=== PATIENT | female | born 1955 | race Caucasian/White ===

== ENCOUNTER 2019-06-06 19:36 | Inpatient (IN) | payer BC ==
[~2019-06-06] VITALS: Ht 170.2 cm; Wt 50.2 kg
[2019-06-06] VITALS (9 sets, daily range): BP systolic 93–121; BP diastolic 64–91; PULSE 66–154; RESP 21–30; Ht 170.2 cm; Wt 50.2 kg
[~2019-06-06 19:36] MED LIST: ETOMIDATE 20 MG INJ ONE
[2019-06-06] MEDS ORDERED: LEVALBUTEROL (NEB) 1.25 MG/0.5 ML AMP HHN SCH ×2 (20:30)
[2019-06-06] MEDS ORDERED: ACETAMINOPHEN 650MG/20.3ML CUP PO PRN (20:30)
[2019-06-06] MEDS ORDERED: DOCUSATE SODIUM 100 MG CAP PO PRN (20:30)
[2019-06-06] MEDS ORDERED: BISACODYL (EC) 5 MG TAB PO PRN (20:30)
[2019-06-06] MEDS ORDERED: IPRATROPIUM (NEB) 0.5 MG/2.5 ML AMP HHN SCH (20:30)
[2019-06-06] MEDS ORDERED: ONDANSETRON 4 MG INJ IV PRN (20:30)
[2019-06-06] MEDS ORDERED: PANTOPRAZOLE 40 MG INJ IV ONE (20:30)
[2019-06-06] MEDS ORDERED: LORAZEPAM 2 MG INJ IV PRN (20:30)
[2019-06-06] MEDS ORDERED: ENOXAPARIN 40 MG/0.4 ML SYG SC SCH (20:30)
[2019-06-06] MEDS ORDERED: METHYLPREDNISOLONE 125 MG INJ IV ONE (20:30)
[2019-06-06] MEDS ORDERED: MAGNESIUM SULFATE 2 GM/50 ML 50 ML IVPB ONE (20:30)
[2019-06-06] MEDS ORDERED: IPRATROPIUM (NEB) 0.5 MG/2.5 ML AMP NEB SCH (21:00)
[2019-06-06] MEDS ORDERED: VANCOMYCIN IV PER PHARMACY XX SCH (21:00)
[2019-06-06] MEDS ORDERED: LEVALBUTEROL (NEB) 1.25 MG/0.5 ML AMP HHN PRN (22:30)
[2019-06-06] MEDS ORDERED: LORAZEPAM 2 MG INJ IV ONE (23:30)
[2019-06-06] MEDS ORDERED: VANCOMYCIN 1 GM 250 ML IVPB ONE (23:30)
[2019-06-06] MEDS: SOD CHLORIDE 0.9% 1,000 ML IV SCH (23:33)
[2019-06-07] VITALS (92 sets, daily range): BP systolic 34–150; BP diastolic 10–127; PULSE 0–166; RESP 0–32
[2019-06-07] MEDS: MEROPENEM 1 GM/50ML(PMX) 50 ML IVPB SCH ×3 (00:16→14:44)
[2019-06-07] MEDS: AZTREONAM 2 GM in SOD CHLORIDE 0.9% 100 ML IVPB SCH ×2 (00:16→08:58)
[2019-06-07] MEDS ORDERED: MIDAZOLAM (DRIP) 50 mg/50 mL 50 ML IV SCH (00:30)
[2019-06-07] MEDS ORDERED: LEVALBUTEROL (NEB) 1.25 MG/0.5 ML AMP HHN SCH (01:00)
[2019-06-07] MEDS ORDERED: METHYLPREDNISOLONE 40 MG INJ IV SCH ×2 (01:30)
[2019-06-07] MEDS ORDERED: MIDODRINE 5 MG TAB GTB ONE (01:30)
[2019-06-07] MEDS: ALBUMIN HUMAN 25% 100 ML IV SCH ×2 (01:49→01:51)
[2019-06-07] MEDS ORDERED: LIDOCAINE 100 MG SYRINGE ONE (02:16)
[2019-06-07] MEDS ORDERED: LIDOCAINE 1% (MDV) 20 ML INJ ONE (02:17)
[2019-06-07] MEDS: NORepinephrine 8MG/250 ML (PMX 250 ML IV SCH ×3 (02:34→17:38)
[2019-06-07] MEDS: METHYLPREDNISOLONE 40 MG INJ IV SCH ×3 (02:44→17:24)
[2019-06-07] MEDS ORDERED: PHENYLephrine 20MG IN 250 ML 250 ML ONE (03:06)
[2019-06-07] MEDS: PHENYLephrine 20MG IN 250 ML 250 ML IV SCH ×3 (03:24→07:37)
[2019-06-07] MEDS: IPRATROPIUM (HFA) 12.9 GM INHALER INH SCH ×4 (04:55→17:00)
[2019-06-07] MEDS: LEVALBUTEROL (HFA) 15 GM INHALER INH SCH ×4 (04:55→17:00)
[2019-06-07] MEDS: ENOXAPARIN 60 MG/0.6 ML SYG SC SCH ×2 (05:24→17:33)
[2019-06-07] MEDS ORDERED: PANTOPRAZOLE 40 MG INJ IV SCH (06:00)
[2019-06-07] MEDS ORDERED: DILTIAZEM 25 MG INJ IV ONE (06:00)
[2019-06-07] MEDS ORDERED: DILTIAZEM 30 MG TAB GTB SCH (06:00)
[2019-06-07] MEDS ORDERED: ENOXAPARIN 100 MG/ML SYG SC SCH (06:00)
[2019-06-07] MEDS: MIDODRINE 5 MG TAB GTB SCH ×3 (08:41→17:22)
[2019-06-07] MEDS ORDERED: FUROSEMIDE 40 MG INJ IV ONE (08:45)
[2019-06-07] MEDS: PHENYLephrine 80 MG in DEXTROSE 5% 242 ML IV SCH ×3 (08:58→17:35)
[2019-06-07] MEDS ORDERED: FENTAnyl 50 MCG/ML VIAL ONE (12:02)
[2019-06-07] MEDS ORDERED: DIGOXIN 500 MCG INJ IV ONE (12:30)
[2019-06-07] MEDS ORDERED: AMIODARONE 150MG/D5W BOLUS 100 ML IV ONE (12:30)
[2019-06-07] MEDS ORDERED: FENTAnyl (DRIP) 1000 mcg/100mL 100 ML IV SCH ×2 (12:30→19:30)
[2019-06-07] MEDS: SOD CHLORIDE 0.9% 1,000 ML IV SCH ×3 (12:40→20:08)
[2019-06-07] MEDS ORDERED: AMIODARONE 900 MG in DEXTROSE 5% 482 ML IV SCH (12:40)
[2019-06-07] MEDS ORDERED: VASOPRESSIN 60 UNIT in DEXTROSE 5% 57 ML IV SCH (13:30)
[2019-06-07] MEDS ORDERED: FENTAnyl 50 MCG/ML VIAL IV ONE (16:00)
[2019-06-07] MEDS ORDERED: morphine (DRIP) 100 MG/100 ML 100 ML IV SCH (21:00)
[2019-06-07] MEDS ORDERED: VANCOMYCIN 750 MG (PMX) 250 ML IVPB SCH (23:30)
== END 2019-06-07 22:58 | disposition expired | DRG 871 ==
LOC: ICU 19:36
PROVIDERS: ADMIT Internal Medicine; ATTEND Internal Medicine
PROC: 5A1935Z Respiratory Ventilation, Less than 24 Consecutive Hours (ICD-10-PCS; 2019-06-06)
PROC: 5A09357 Assistance with Respiratory Ventilation, Less than 24 Consecutive Hours, Continuous Positive Airway Pressure (ICD-10-PCS; 2019-06-06)
PROC: 06HM33Z Insertion of Infusion Device into Right Femoral Vein, Percutaneous Approach (ICD-10-PCS; principal; 2019-06-07)
DX: A41.9 Sepsis, unspecified organism (principal); J96.21 Acute and chronic respiratory failure with hypoxia; E43 Unspecified severe protein-calorie malnutrition; L89.153 Pressure ulcer of sacral region, stage 3; J18.9 Pneumonia, unspecified organism; J96.22 Acute and chronic respiratory failure with hypercapnia; R65.21 Severe sepsis with septic shock; C34.91 Malignant neoplasm of unspecified part of right bronchus or lung; J90 Pleural effusion, not elsewhere classified; R64 Cachexia; I87.1 Compression of vein; Z68.1 Body mass index [BMI] 19.9 or less, adult; I48.0 Paroxysmal atrial fibrillation; J44.9 Chronic obstructive pulmonary disease, unspecified; Z93.1 Gastrostomy status; F17.210 Nicotine dependence, cigarettes, uncomplicated; D63.0 Anemia in neoplastic disease; Y95 Nosocomial condition; Z66 Do not resuscitate; Z79.02 Long term (current) use of antithrombotics/antiplatelets
CPT/HCPCS: 31500; 36600; 71045; 80048; 80053; 80061; 82306; 82728; 82803; 83036; 83540; 83735; 84145; 84443; 85025; 86850; 86900; 86901; 86920; 87081; 93005; 93306; 94002; 94003; 94640; 94660; 94664; 94770; C1751; C9113; J0282; J1650; J1940; J2001; J2060; J2185; J2250; J2270; J2370; J2920; J2930; J3010; J3370; J3475; J7030; J7060; J7070; P9047